=== PATIENT | female | born 1995 | race Caucasian/White ===

== ENCOUNTER 2016-11-22 21:15 | Emergency (ER) | payer MEDICAID ==
--- NOTE | 2016-11-22 22:45 | ED Physician Chart ---
Chief Complaint/HPI - Patient Information Date Seen:: 11/22/16 Time Seen:: 22:40 Chief Complaint:: rectal bleeding History of Present Illness:: This morning after the patient had a normal bowel movement she noted blood on the toilet paper when she wiped. She is urinated 3 times since then and the noted blood on the toilet paper each time. She states the blood is coming from the rectum, not from the urethra. Patient is 24 weeks . She is 2 para 1 Allergies:: Allergies Allergy/AdvReac Type Severity Reaction Status Date / Time No Known Allergies Allergy Verified 11/22/16 22:02 Vitals:: Vital Signs - 8 hr 11/22/16 21:30 Temp 97.9 F HR 84 RR 18 BP 114/73 O2 Sat % 99 Historian:: Patient Review:: Nurse's Note Reviewed Review of Systems - Review of Systems General/Constitutional: No fever, No chills Skin: No skin lesions Head: No headache Eyes: No loss of vision ENT: No earache Neck: No neck pain Cardio Vascular: No chest pain, No palpitations Pulmonary: No SOB GI: No nausea, No vomiting, No constipation, Other (see history) G/U: No dysuria, No hematuria Musculoskeletal: No bone or joint pain Endocrine: No polyuria Psychiatric: No prior psych history, No depression Hematopoietic: No bruising Allergic/Immuno: No urticaria Neurological: No syncope, No focal symptoms Past Medical History - Past Medical History Past Medical History: No significant medical hx Family History: None Social History: Non Smoker, No Alcohol Surgical History: None Psychiatricy History: None Medication: Reviewed Family Medical History - Family Member Mother History Unknown: Yes Ethnicity: Living Status: Still Living Physical Exam - Physical Examination General/Constitutional: Well-developed, well-nourished, Alert, No distress Head: Atraumatic Eyes: Lids, conjuctiva normal, PERRL Skin: Nl inspection, No rash ENMT: External ears, nose nl, TM canals nl, Nasal exam nl, Lips, teeth, gums nl Neck: No nuchal rigidity Respiratory: Nl effort/Exclusion, Clear to Auscultation Cardio Vascular: RRR GI: No tenderness/rebounding/guarding Other GI comments:: Uterus elevated to the level of umbilicus. Rectal exam: No external masses visible or internal masses palpable; dark red semisolid fluid on the examining glove. ED Septic Shock - . Is Septic Shock (SBP<90, OR Lactate>4 mmol\L) present?: No - <6hrs of presentation: Vital Signs: Vital Signs - 8 hr 11/22/16 21:30 Temp 97.9 F HR 84 RR 18 BP 114/73 O2 Sat % 99 Reassessment (Disposition) - Diagnosis Diagnosis:: Internal hemorrhoids - Aftercare/Follow up Instructions Medication Prescribed:: Anusol HC suppository #12 sig or directions - Patient Disposition Discharge/Transfer:: Home Condition at Disposition:: Stable, Unchanged
== END 2016-11-23 | disposition home or self-care (01) ==
LOC: ER 21:15
DX: K64.8 Other hemorrhoids (principal)